=== PATIENT | female | born 1985 | race African-American/Black ===

== ENCOUNTER 2021-05-02 16:49 | Observation (INO) | payer OTHER ==
[2021-05-02 18:30] LABS: BASO % 0.6 % (0-2.0); EOS % 1.1 % (0-4.5); HEMATOCRIT 26.2 % (32.4-45.2); HEMOGLOBIN 7.4 GM/dL (10.7-15.3); LYMPH % 22.9 % (8-40); MCHC 28.4 g/dl (32.0-36.0); MEAN CELL VOLUME 56.7 fl (80-96); NEUT % 67.4 % (42.8-82.8); PLATELET COUNT 320 10^3/uL (134-434); RBC 4.62 M/mm3 (3.60-5.2); RDW 23.5 % (11.6-15.6); WHITE BLOOD COUNT 8.1 K/mm3 (4.0-10.0)
[2021-05-02 18:31] LABS: MCH 16.1 pg (25.7-33.7)
[2021-05-02 18:36] LABS: INR 0.97 (0.83-1.09)
[2021-05-02 18:39] LABS: ACTIVATED PTT 26.7 SECONDS (25.2-36.5)
[2021-05-02 18:55] LABS: ANISOCYTOSIS 3+; MACROCYTOSIS 0; PLATELET ESTIMATE NORMAL; TEAR DROP CELLS 1+
[2021-05-02 18:59] LABS: CALCIUM 8.3 mg/dL (8.5-10.1)
[2021-05-02 19:00] LABS: ALBUMIN 3.6 g/dl (3.4-5.0); BLOOD UREA NITROGEN 11.7 mg/dL (7-18); MAGNESIUM 2.2 mg/dL (1.8-2.4)
[2021-05-02 19:04] LABS: BILIRUBIN,TOTAL 0.2 mg/dL (0.2-1); CREATININE 0.8 mg/dL (0.55-1.3)
[2021-05-02 19:05] LABS: TOT PROT 7.3 g/dl (6.4-8.2)
[2021-05-03 02:43] VITALS: BMI 35.9
[2021-05-03] MEDS ORDERED: FERROUS SO4 325 MG TABLET (FP) PO SCH (10:00)
[2021-05-03 10:14] LABS: BASO % 0.4 % (0-2.0); EOS % 1.6 % (0-4.5); HEMATOCRIT 30.3 % (32.4-45.2); HEMOGLOBIN 8.7 GM/dL (10.7-15.3); LYMPH % 27.9 % (8-40); MCHC 28.6 g/dl (32.0-36.0); MEAN PLT VOLUME 8.5 fl (7.5-11.1); NEUT % 65.1 % (42.8-82.8); PLATELET COUNT 286 10^3/uL (134-434); RBC 4.96 M/mm3 (3.60-5.2); RDW 29.1 % (11.6-15.6); WHITE BLOOD COUNT 7.7 K/mm3 (4.0-10.0)
[2021-05-03 10:19] LABS: MCH 17.4 pg (25.7-33.7)
[2021-05-03 10:21] LABS: BLOOD UREA NITROGEN 12.4 mg/dL (7-18); CALCIUM 8.3 mg/dL (8.5-10.1)
[2021-05-03 10:25] LABS: CREATININE 0.7 mg/dL (0.55-1.3)
[2021-05-03 11:39] VITALS: BP 105/50; PULSE 74; TEMP 98.5
== END 2021-05-03 12:40 | disposition home or self-care (01) ==
LOC: JER 16:49 → JERBED 18:58 → J8W 05-03 01:15
PROVIDERS: ADMIT Hospitalist; ATTEND Internal Medicine
PROC: 30233N1 Transfusion of Nonautologous Red Blood Cells into Peripheral Vein, Percutaneous Approach (ICD-10-PCS; principal; 2021-05-02)
DX: D64.89 Other specified anemias (principal); N92.0 Excessive and frequent menstruation with regular cycle
CPT/HCPCS: 36415; 36430; 36511; 71045-TC-FY; 80048; 80053; 82728; 83540; 83550; 83615; 83735; 84443; 85025; 85045; 85610; 85730; 86850; 86900; 86901; 86922; 93005; 93010; 99285-25; C9803; G0378; P9038; P9058; U0003; U0005

== ENCOUNTER 2021-09-11 04:25 | Inpatient (IN) | payer OTHER ==
[2021-09-10 15:56] VITALS: BMI 37.1
[2021-09-11] MEDS ORDERED: MIDAZOLAM HCL 2 MG/2 ML SINGLE DOSE VIAL ONE ×3 (07:16→07:30)
[2021-09-11] MEDS ORDERED: BUPIVACAINE LIPOSOME/PF (EXPAREL) 266 MG/20 ML VIAL ONE (07:17)
[2021-09-11] MEDS ORDERED: LIDOCAINE HCL 2% (20ML MULTI-DOSE VIAL) ONE (07:18)
[2021-09-11] MEDS ORDERED: PROPOFOL 20 ML ONE ×3 (07:29)
[2021-09-11] MEDS ORDERED: fentaNYL CITRATE 250 MCG/5 ML VIAL ONE (07:29)
[2021-09-11] MEDS ORDERED: ROCURONIUM BROMIDE 50 MG/5 ML SYRINGE ONE (07:29)
[2021-09-11] MEDS ORDERED: GLYCOPYRROLATE 0.2 MG/1 ML VIAL ONE ×2 (07:29→09:52)
[2021-09-11] MEDS ORDERED: SUCCINYLCHOLINE CHLORIDE 200 MG/10 ML SYRINGE ONE (07:30)
[2021-09-11] MEDS ORDERED: VASOPRESSIN 20 UNITS/ML VIAL IV ONE (07:37)
[2021-09-11] MEDS ORDERED: ceFAZolin SODIUM 1 GM VIAL IVPB ONE (08:30)
[2021-09-11] MEDS ORDERED: ONDANSETRON 4 MG/2 ML VIAL IVPUSH PRN ×2 (09:13→10:35)
[2021-09-11] MEDS ORDERED: HYDROmorphone HCL CARPU-JECT 2 MG/1 ML DISP.SYRIN IVPUSH PRN (09:13)
[2021-09-11] MEDS ORDERED: HYDROmorphone HCl 2 MG/ML VIAL IVPUSH PRN (09:24)
[2021-09-11] MEDS ORDERED: NEOSTIGMINE METHYLSULFATE 0.5 MG/ML - 10 ML MDV ONE (09:51)
[2021-09-11] MEDS ORDERED: LIDOCAINE HCL 2% JELLY (5 ML/TUBE) ONE (09:52)
[2021-09-11] MEDS ORDERED: ceFAZolin SODIUM 1 GM VIAL ONE ×3 (09:52→23:31)
[2021-09-11] MEDS ORDERED: LIDOCAINE HCL/PF 2% SDV 5ML VIAL ONE (09:52)
[2021-09-11] MEDS ORDERED: DEXAMETHASONE SOD PHOSPHATE 4 MG/1 ML VIAL ONE (09:52)
[2021-09-11] MEDS ORDERED: oxyCODONE HCL 5 MG TABLET PO PRN (10:35)
[2021-09-11] MEDS ORDERED: BISACODYL 5 MG TABLET.DR (FP) PO PRN (10:35)
[2021-09-11] MEDS: LACTATED RINGERS SOLUTION 1,000 ML/1,000 ML INFUS.BAG IV SCH ×2 (11:13→13:10)
[2021-09-11] MEDS: LACTATED RINGERS SOLUTION 1,000 ML IV SCH (13:10)
[2021-09-11] MEDS: ACETAMINOPHEN 500 MG TABLET (FP) PO SCH ×2 (13:41→21:15)
[2021-09-11] MEDS ORDERED: CEFAZOLIN 1 GM in DEXTROSE 5%-WATER - 1 GM/50 ML IVPB IVPB SCH (16:00)
[2021-09-11] MEDS ORDERED: DEXTROSE 5%-WATER - 50 ML IVPB ONE ×2 (16:16→23:31)
[2021-09-11] MEDS: CEFAZOLIN 1 GM in DEXTROSE 5%-WATER - 1 GM/50 ML IVPB IVPB SCH ×2 (16:19→23:40)
[2021-09-11] MEDS: IBUPROFEN 800 MG/8 ML IJ IVPB SCH (17:25)
[2021-09-11] MEDS ORDERED: IBUPROFEN 800 MG/8 ML IJ IVPB PRN (18:00)
[2021-09-11 20:07] LABS: HEMATOCRIT 27.6 % (32.4-45.2); HEMOGLOBIN 8.5 GM/dL (10.7-15.3); MCH 21.5 pg (25.7-33.7); MEAN CELL VOLUME 69.5 fl (80-96); MEAN PLT VOLUME 8.2 fl (7.5-11.1); PLATELET COUNT 353 10^3/uL (134-434); RBC 3.97 M/mm3 (3.60-5.2); WHITE BLOOD COUNT 18.9 K/mm3 (4.0-10.0)
[2021-09-11 20:28] LABS: CALCIUM 8.6 mg/dL (8.5-10.1)
[2021-09-11 20:30] LABS: BLOOD UREA NITROGEN 17.6 mg/dL (7-18)
[2021-09-11] MEDS: oxyCODONE HCL 5 MG TABLET PO PRN (23:38)
[2021-09-11] MEDS: SIMETHICONE 80 MG TAB.CHEW (FP) PO PRN (23:38)
[2021-09-12] MEDS: IBUPROFEN 800 MG/8 ML IJ IVPB SCH ×2 (02:26→09:46)
[2021-09-12] MEDS: ACETAMINOPHEN 500 MG TABLET (FP) PO SCH ×3 (05:57→20:26)
[2021-09-12] MEDS: oxyCODONE HCL 5 MG TABLET PO PRN (08:34)
[2021-09-12 08:41] LABS: HEMATOCRIT 23.2 % (32.4-45.2); HEMOGLOBIN 7.4 GM/dL (10.7-15.3); MCH 21.7 pg (25.7-33.7); MEAN CELL VOLUME 67.7 fl (80-96); MEAN PLT VOLUME 8.1 fl (7.5-11.1); PLATELET COUNT 307 10^3/uL (134-434); RBC 3.43 M/mm3 (3.60-5.2); RDW 19.9 % (11.6-15.6); WHITE BLOOD COUNT 15.7 K/mm3 (4.0-10.0)
[2021-09-12 09:01] LABS: BLOOD UREA NITROGEN 11.8 mg/dL (7-18); CALCIUM 8.3 mg/dL (8.5-10.1)
[2021-09-12 09:05] LABS: CREATININE 0.8 mg/dL (0.55-1.3)
[2021-09-12] MEDS: LACTATED RINGERS SOLUTION 1,000 ML IV SCH (09:45)
[2021-09-12] MEDS: FERROUS SO4 325 MG TABLET (FP) PO SCH (09:47)
[2021-09-12] MEDS: ASCORBIC ACID 500 MG TABLET (FP) PO SCH (09:47)
[2021-09-12] MEDS: ENOXAPARIN NA (PORCINE) 40 MG/0.4 ML DISP.SYRIN SQ SCH (09:48)
[2021-09-12] MEDS: LACTATED RINGERS SOLUTION 1,000 ML/1,000 ML INFUS.BAG IV SCH (13:25)
[2021-09-12] MEDS: SIMETHICONE 80 MG TAB.CHEW (FP) PO PRN (23:02)
[2021-09-13] MEDS: oxyCODONE HCL 5 MG TABLET PO PRN ×3 (02:20→17:28)
[2021-09-13] MEDS: ACETAMINOPHEN 500 MG TABLET (FP) PO SCH ×3 (04:16→21:26)
[2021-09-13] MEDS: FERROUS SO4 325 MG TABLET (FP) PO SCH (09:06)
[2021-09-13] MEDS: SIMETHICONE 80 MG TAB.CHEW (FP) PO PRN ×2 (09:06→17:28)
[2021-09-13] MEDS: IBUPROFEN 600 MG TABLET (FP) PO PRN (09:07)
[2021-09-13] MEDS: ENOXAPARIN NA (PORCINE) 40 MG/0.4 ML DISP.SYRIN SQ SCH (09:08)
[2021-09-13] MEDS: ASCORBIC ACID 500 MG TABLET (FP) PO SCH (09:08)
[2021-09-13 10:06] LABS: BASO % 0.3 % (0-2.0); EOS % 0.1 % (0-4.5); HEMATOCRIT 32.3 % (32.4-45.2); HEMOGLOBIN 10.5 GM/dL (10.7-15.3); LYMPH % 16.1 % (8-40); MCH 23.8 pg (25.7-33.7); MCHC 32.5 g/dl (32.0-36.0); MEAN CELL VOLUME 73.4 fl (80-96); MEAN PLT VOLUME 8.5 fl (7.5-11.1); MONO % 4.2 % (3.8-10.2); NEUT % 79.3 % (42.8-82.8); PLATELET COUNT 309 10^3/uL (134-434); RBC 4.39 M/mm3 (3.60-5.2); RDW 20.2 % (11.6-15.6); WHITE BLOOD COUNT 13.6 K/mm3 (4.0-10.0)
[2021-09-13] MEDS: DOCUSATE SODIUM 100 MG CAPSULE (FP) PO PRN (17:28)
[2021-09-14] MEDS: oxyCODONE HCL 5 MG TABLET PO PRN (04:10)
[2021-09-14] MEDS: ENOXAPARIN NA (PORCINE) 40 MG/0.4 ML DISP.SYRIN SQ SCH (09:49)
[2021-09-14] MEDS: ASCORBIC ACID 500 MG TABLET (FP) PO SCH (09:50)
[2021-09-14] MEDS: FERROUS SO4 325 MG TABLET (FP) PO SCH (09:50)
[2021-09-14] MEDS: IBUPROFEN 600 MG TABLET (FP) PO PRN ×2 (09:55→18:27)
[2021-09-14 11:11] LABS: BASO % 0.7 % (0-2.0); EOS % 1.4 % (0-4.5); HEMATOCRIT 32.9 % (32.4-45.2); LYMPH % 15.7 % (8-40); MCH 23.8 pg (25.7-33.7); MCHC 33.3 g/dl (32.0-36.0); MEAN CELL VOLUME 71.4 fl (80-96); MEAN PLT VOLUME 7.7 fl (7.5-11.1); MONO % 6.7 % (3.8-10.2); NEUT % 75.5 % (42.8-82.8); PLATELET COUNT 372 10^3/uL (134-434); RBC 4.62 M/mm3 (3.60-5.2); RDW 20.9 % (11.6-15.6); WHITE BLOOD COUNT 12.5 K/mm3 (4.0-10.0)
[2021-09-14 13:58] LABS: ANISOCYTOSIS 2+; MACROCYTOSIS 1+; OVALOCYTE 1+; PLATELET ESTIMATE NORMAL
[2021-09-14] MEDS: SIMETHICONE 80 MG TAB.CHEW (FP) PO PRN (22:01)
[2021-09-15] MEDS: IBUPROFEN 600 MG TABLET (FP) PO PRN (01:56)
[2021-09-15 05:51] VITALS: BP 143/79; PULSE 77; TEMP 98.5
[2021-09-15] MEDS: FERROUS SO4 325 MG TABLET (FP) PO SCH (10:13)
[2021-09-15] MEDS: ASCORBIC ACID 500 MG TABLET (FP) PO SCH (10:13)
[2021-09-15] MEDS: ENOXAPARIN NA (PORCINE) 40 MG/0.4 ML DISP.SYRIN SQ SCH (10:14)
[2021-09-15] MEDS: DOCUSATE SODIUM 100 MG CAPSULE (FP) PO PRN (10:47)
== END 2021-09-15 14:02 | disposition home or self-care (01) | DRG 519 ==
LOC: JASUSAT 04:25 → J2C 10:35 → J6S 12:43
PROVIDERS: ADMIT Obstetrics & Gynecology; ATTEND Obstetrics & Gynecology
PROC: 0UB90ZZ Excision of Uterus, Open Approach (ICD-10-PCS; principal; 2021-09-11 07:30)
PROC: 30233N1 Transfusion of Nonautologous Red Blood Cells into Peripheral Vein, Percutaneous Approach (ICD-10-PCS; 2021-09-12)
DX: D25.1 Intramural leiomyoma of uterus (principal); D25.2 Subserosal leiomyoma of uterus; N92.0 Excessive and frequent menstruation with regular cycle; D62 Acute posthemorrhagic anemia
CPT/HCPCS: 36415; 36430; 80048; 81025; 85025; 85027; 86850; 86900; 86901; 86922; 88307-TC; 94010; 94760; 97116-GP; 97161-GP; C9803; P9058; U0003; U0005